=== PATIENT | male | born 1955 | race Caucasian/White ===

== ENCOUNTER 2020-11-25 07:58 | Outpatient (CLI) | payer OTHER, SELFPAY ==
[2020-11-25 08:18] LABS: Add Urine Microscopic? NO; Appearance Urine Clear (Clear); Bilirubin Urine Negative (Negative); Blood Urine Negative (Negative); Color Urine Yellow (Yellow); Glucose Urine UA Negative (Negative); Ketones Urine Negative (Negative); Leukocyte Esterase Ur Negative (Negative); Nitrate Urine Negative (Negative); Protein Urine Negative (Negative); Specific Grav Ur 1.025 (1.010-1.020); Urobilinogen Urine 0.2 mg/dL (0.2-1.0)
[2020-11-25 08:22] LABS: Hemoglobin A1C 6.9 % (<5.7)
[2020-11-25 08:33] LABS: Creatinine Urine 194.06 mg/dL (40-278); MALB Creatinine Ratio 6.6 mg/g (0-30); Microalbumin Urine Random < 13.0 mg/L
[2020-11-25 08:56] LABS: Alanine Aminotransferase 52 U/L (16-63); Albumin Level 3.8 g/dL (3.4-5.0); Alkaline Phosphatase 57 U/L (46-116); Anion Gap 9 mmol/L (8-16); Aspartate Amino Transferase 28 U/L (15-37); Bilirubin,Total 0.7 mg/dL (0.00-1.00); Blood Urea Nitrogen 16 mg/dL (7-18); Calcium 8.9 mg/dL (8.5-10.1); Carbon Dioxide 30 mmol/L (21-32); Chloride 102 mmol/L (98-108); Cholesterol 192 mg/dL (0-200); Creatine Kinase 155 U/L (39-308); Estimated Glomerular Filt Rate > 60; Glucose 145 mg/dL (70-99); HDL Direct 31 mg/dL (40-60); LDL Cholesterol Calculated 121 mg/dL (<130); Osmolality Calculated 296 mOsm/kg (285-295); Potassium 3.9 mmol/L (3.5-5.1); Prostate Specific Antigen 0.8 ng/mL (< OR = 4.0); Sodium 141 mmol/L (136-145); Triglycerides 201 mg/dL (0-150)
== END 2020-11-25 07:59 | disposition home or self-care (01) ==
LOC: CHSLAB 08:00
PROVIDERS: PCP Internal Medicine; Visit Provider Internal Medicine
DX: E11.65 Type 2 diabetes mellitus with hyperglycemia (principal); E78.2 Mixed hyperlipidemia; I10 Essential (primary) hypertension; Z12.5 Encounter for screening for malignant neoplasm of prostate
CPT/HCPCS: 36415; 80053; 80061; 81003; 82043; 82550; 83036; 84153; G0103

== ENCOUNTER 2021-04-28 11:06 | Outpatient (CLI) | payer OTHER, SELFPAY ==
[2021-04-28 12:48] LABS: Influenza A QL RT-PCR Negative (Negative); Influenza B QL RT-PCR Negative (Negative); SARS-CoV-2 RNA PCR Negative (Negative)
== END 2021-04-28 11:07 | disposition home or self-care (01) ==
LOC: CHSLAB 11:08
PROVIDERS: PCP Internal Medicine; Visit Provider Internal Medicine
DX: J06.9 Acute upper respiratory infection, unspecified (principal); Z20.822 Contact with and (suspected) exposure to COVID-19
CPT/HCPCS: 87502; C9803; U0003; U0005

== ENCOUNTER 2021-07-09 16:25 | Outpatient (CLI) | payer OTHER, SELFPAY ==
[2021-07-09 17:44] LABS: SARS-CoV-2 RNA PCR Negative (Negative)
== END 2021-07-09 16:26 | disposition home or self-care (01) ==
LOC: CHSLAB 16:27
PROVIDERS: PCP Internal Medicine; Visit Provider Internal Medicine
DX: J06.9 Acute upper respiratory infection, unspecified (principal); Z20.822 Contact with and (suspected) exposure to COVID-19
CPT/HCPCS: C9803; U0003; U0005

== ENCOUNTER 2021-10-29 08:22 | Outpatient (CLI) | payer OTHER, SELFPAY ==
--- NOTE | ~2021-10-29 | XR_ITS ---
EXAMINATION: XR knee RT 3V DATE: 10/29/2021 08:43 INDICATION: Right knee pain. TECHNIQUE: 4 views of right knee including standing views were obtained. COMPARISON: None. FINDINGS: There is varus angulation at the knee. No fracture. There is severe osteoarthritis of media l compartment and mild osteoarthritis of patellofemoral compartment. No knee joint effusion. IMPRESSION: 1. Severe right knee osteoarthritis. Reviewed, dictated and finalized at location A.
== END 2021-10-29 08:23 | disposition home or self-care (01) ==
LOC: CHSIMG 08:23
PROVIDERS: PCP Internal Medicine; Visit Provider Internal Medicine
DX: M17.11 Unilateral primary osteoarthritis, right knee (principal); M25.561 Pain in right knee
CPT/HCPCS: 73562

== ENCOUNTER 2021-11-08 16:57 | Outpatient (RCR) | payer OTHER, SELFPAY ==
--- NOTE | 2021-11-15 12:48 | PTOPEVAL ---
Thank you for referring Srinivas Harkins to [facility].? The patient is scheduled to be seen for therapy? ____x/week for ___ weeks. Please review, sign, date and return this plan of care PAMELA. I agree with and certify that the following plan of care is medically necessary. Referring Physician Date Admitting Provider: Attending Provider: Adamaris Tran MD Referring Provider: *PT Outpatient Evaluation Start: 11/08/21 17:03 Freq: Status: Active Protocol: Document 11/08/21 17:04 YOVANY (Rec: 11/08/21 17:48 YOVANY [email or web address]) Therapy Assessment Status Assessment Status Assessment Status Evaluation Evaluation Information Problem Diagnosis bilateral knee pain Onset 11/05/21 Additional Evaluation Detail LEFS = 23% functionally declined Subjective Information patient reports he has had Query Text:As Reported By Patient/ pain in the bilateral knees Family for years (surgery on the R in 1998 and on the L in 2002). he reports however, for the past 6 months things have been progerssively worse. he reports he has had xrays about 2 weeks ago. he reports he has increased pain with walking, worse throughout the day if he is walking longer. he reports he also has increased pain with walking up and down steps. he reports the outside of his knee will feel numb after a full day walking. he reports he has been wearing copper fit compression sleeves for about 2 weeks. 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 Prior Level of Function Comments Additional Prior Level of Function he reports for the last 6 Comments months his activity tolerance and distance/time walking has significantly decreased. Pain Assessment Timing of Pain Assessment Timing of Pain Assessment Assessment Pain Scale Pain Scale Used Numeric (1 - 10) Self Report Pain Assessment Left Knee(s) Reported Pain Level 1 Greatest Pain Intensity 2 Right Knee(s) Reported Pain Level 3 Greatest Pain Intensity 3 Pain Score Pain Score 3,1: Self Report Additiona
== END 2021-12-13 08:49 | disposition home or self-care (01) ==
LOC: CHSPT 16:57
PROVIDERS: PCP Internal Medicine; Visit Provider Internal Medicine
DX: M25.562 Pain in left knee (principal); M25.561 Pain in right knee
CPT/HCPCS: 97014; 97110; 97161; G0283

== ENCOUNTER 2021-11-23 08:24 | Outpatient (CLI) | payer OTHER, SELFPAY ==
--- NOTE | ~2021-11-23 | XR_ITS ---
EXAMINATION: XR chest 2V DATE: 11/23/2021 08:55 INDICATION: Hypertension TECHNIQUE: PA and lateral views of the chest are obtained. COMPARISON: 01/21/2015 FINDINGS: The lungs are free of acute opacities. There is no pleural effusion or pneumothorax. The ca rdiomediastinal silhouette is normal. There is mild thoracic spondylosis. Calcified pulmonary nodules and calcified left hilar and mediastinal lymph nodes are consistent with old granulomatous disease. IMPRESSION: 1. No acute cardiopulmonary abnormality. Reviewed, dictated and finalized at location A.
[2021-11-23 08:43] LABS: Basophils Absolute Auto 0.05 K/mm3 (0.00-0.10); Basophils Percent Auto 0.5 % (0.0-1.0); Eosinophils Absolute Auto 0.11 K/mm3 (0.02-0.50); Eosinophils Percent Auto 1.2 % (1.0-6.0); Hematocrit 39.4 % (40.0-54.0); Hemoglobin 13.3 g/dL (14.0-18.0); Immature Granulocyte Absolute 0.04 K/mm3 (0.00-0.00); Immature Granulocyte Percent A 0.4 % (0.0-0.0); Lymphocytes Absolute Auto 1.66 K/mm3 (1.10-4.50); Lymphocytes Percent Auto 17.8 % (18.0-42.0); Mean Corpuscular HGB Conc 33.8 g/dL (32.0-36.0); Mean Corpuscular Hemoglobin 31.9 pg (27.0-31.0); Mean Corpuscular Volume 94.5 fL (78.0-102.0); Mean Platelet Volume 10.7 fl (8.7-11.0); Monocytes Absolute Auto 0.79 K/mm3 (0.10-0.90); Monocytes Percent Auto 8.5 % (2.0-11.0); Neutrophils Absolute Auto 6.7 K/mm3 (1.7-7.2); Neutrophils Percent Auto 71.6 % (50.0-70.0); Platelet Count Result 251 K/mm3 (150-420); Red Blood Count 4.17 M/mm3 (4.70-6.10); Red Cell Distribution Width 12.1 % (11.6-14.4); White Blood Count 9.3 K/mm3 (4.8-10.8)
[2021-11-23 08:56] LABS: Add Urine Microscopic? NO; Appearance Urine Clear (Clear); Bilirubin Urine Negative (Negative); Blood Urine Negative (Negative); Color Urine Light Yellow (Yellow); Glucose Urine UA Negative (Negative); Ketones Urine Negative (Negative); Leukocyte Esterase Ur Negative (Negative); Nitrate Urine Negative (Negative); Protein Urine Negative (Negative); Specific Grav Ur 1.015 (1.010-1.020); Urobilinogen Urine 0.2 mg/dL (0.2-1.0)
--- NOTE | 2021-11-23 09:00 | ECG_ITS ---
Measurements Intervals [place] Rate: 58 P: 36 VA: 206 QRS: 65 QRSD: 109 T: 45 QT: 406 QTc: 400 Interpretive Statements SINUS BRADYCARDIA WITH OCCASIONAL VENTRICULAR PREMATURE COMPLEXES NO PREVIOUS ECG AVAILABLE FOR COMPARISON Electronically Signed On 11-23-2021 10:06:04 CDT by Royal Plummer M.D.
[2021-11-23 09:01] LABS: Creatinine Urine 58.26 mg/dL (40-278); MALB Creatinine Ratio 38.4 mg/g (0-30); Microalbumin Urine Random 22.4 mg/L
[2021-11-23 09:03] LABS: Hemoglobin A1C 6.8 % (<5.7)
[2021-11-23 09:07] LABS: Alanine Aminotransferase 39 U/L (16-63); Albumin Level 3.7 g/dL (3.4-5.0); Alkaline Phosphatase 52 U/L (46-116); Anion Gap 4 mmol/L (8-16); Aspartate Amino Transferase 18 U/L (15-37); Bilirubin,Total 0.6 mg/dL (0.00-1.00); Blood Urea Nitrogen 24 mg/dL (7-18); Carbon Dioxide 30 mmol/L (21-32); Chloride 102 mmol/L (98-108); Cholesterol 202 mg/dL (0-200); Creatine Kinase 56 U/L (39-308); Estimated Glomerular Filt Rate > 60; Glucose 79 mg/dL (70-99); HDL Direct 40 mg/dL (40-60); LDL Cholesterol Calculated 128 mg/dL (<130); Osmolality Calculated 285 mOsm/kg (285-295); Potassium 4.3 mmol/L (3.5-5.1); Sodium 136 mmol/L (136-145); Total Protein 7.8 g/dL (6.4-8.2); Triglycerides 170 mg/dL (0-150)
== END 2021-11-23 08:25 | disposition home or self-care (01) ==
PROVIDERS: PCP Internal Medicine; Visit Provider Nurse Practitioner Family
DX: R42 Dizziness and giddiness (principal); I10 Essential (primary) hypertension; E78.2 Mixed hyperlipidemia; E11.9 Type 2 diabetes mellitus without complications; M25.561 Pain in right knee
CPT/HCPCS: 36415; 71046; 80053; 80061; 81003; 82043; 82550; 83036; 85025; 93005

== ENCOUNTER 2022-02-15 11:52 | Outpatient (CLI) | payer OTHER, SELFPAY ==
[2022-02-15 13:05] LABS: Basophils Absolute Auto 0.1 K/mm3 (0.0-0.1); Basophils Percent Auto 0.5 % (0.2-1.2); Eosinophils Absolute Auto 0.2 K/mm3 (0-0.3); Eosinophils Percent Auto 2.1 % (0-4.4); Hematocrit 37.8 % (42.0-52.0); Hemoglobin 12.8 g/dL (14.0-18.0); Immature Granulocyte Absolute 0.05 K/mm3 (0.00-0.031); Immature Granulocyte Percent A 0.5 % (0-0.5); Lymphocytes Absolute Auto 2.15 K/mm3 (0.9-3.2); Lymphocytes Percent Auto 22.8 % (18.3-44.2); Mean Corpuscular HGB Conc 33.9 g/dl (32-36); Mean Corpuscular Hemoglobin 32.2 pg (26-34); Mean Corpuscular Volume 95.2 fl (80-100); Mean Platelet Volume 11.4 fl (7.4-10.4); Monocytes Percent Auto 10.2 % (2.6-8.5); Neutrophils Percent Auto 63.9 % (45.5-73.1); Platelet Count Result 257 k/mm3 (150-375); Red Blood Count 3.97 M/mm3 (4.6-6.20); Red Cell Distribution Width 12.2 % (11.5-14.5); White Blood Count 9.4 K/mm3 (4.5-10.0)
[2022-02-15 13:14] LABS: Albumin Level 4.7 g/dL (3.5-5.1); Anion Gap 10 mmol/L (8-16); Blood Urea Nitrogen 30 mg/dL (9-20); Calcium 10.2 mg/dL (8.4-10.2); Carbon Dioxide 26 mmol/L (22-30); Chloride 102 mmol/L (98-107); Estimated Glomerular Filt Rate 56; Glucose 111 mg/dL (65-110); Potassium 5.5 mmol/L (3.4-5.0); Sodium 138 mmol/L (137-145)
[2022-02-15 13:24] LABS: Urine Cotinine NEGATIVE
[2022-02-15 13:32] LABS: Hemoglobin A1C 6.7 % (<5.7)
== END 2022-02-15 11:53 | disposition home or self-care (01) ==
LOC: ANHSURGERY 12:03
PROVIDERS: PCP Internal Medicine; Visit Provider Orthopaedic Surgery
DX: M17.11 Unilateral primary osteoarthritis, right knee (principal); Z01.818 Encounter for other preprocedural examination
CPT/HCPCS: 80048; 80307; 82040; 83036; 85025; 87070

== ENCOUNTER 2022-03-02 00:57 | Day surgery (SDC) | payer OTHER, SELFPAY ==
--- NOTE | 2022-02-15 11:56 | PC.NURSE ---
PRE-OP INSTRUCTIONS, PLEASE READ CAREFULLY Report to the Outpatient Waiting Room, entrance under the green pavilion located off [facility], at time _1000_ on date _03/02/22_. OR Time: _1200_. PACK A SMALL OVERNIGHT BAG AND LEAVE IN THE CAR ALONG WITH YOUR WALKER. Time changes happen often and if your time is changed the preop area will call you the afternoon before. - You and your visitor will be asked to self-screen and do not enter if you have any COVID symptoms. - A mask is required within the hospital. - Only one visitor and NO children visitors are allowed at this time. - The patient visitor is requested to leave or wait in car when not with patient due to restrictions. - VISITING HOURS 10AM-8PM PARK IN FRONT PARKING LOT AND USE HOSPITAL ENTRANCE 1 Patients may have clear liquids (water, carbonated beverages, clear teas, apple juice) until 3 hours prior to surgery (0900 AM) with a maximum of 20 ounces. - No food from midnight until time of surgery Take the following medications with a SIP of water the morning of surgery: _AMLODIPINE, CARVEDILOL_ Medications to discontinue per physician ___N/A___, Date to take last dose Please no deodorant, or body powder the day of surgery. No jewelry (including any body piercings) or valuables the day of surgery, leave them at home. Please take a shower or bath the night before, or the morning of, surgery with an antibacterial soap. Wear comfortable, loose fitting clothing. - Jewelry must be removed prior to entering the operating room. Rings and piercings that are not removed may be cut off. - The hospital will not accept responsibility for valuables. - Please leave all valuables, including medications, at home the day of surgery. If you are going home after surgery, a licensed [employer] driver must drive you home. - NO public transportation without another adult. - We recommend that an adult stay with you for 24 hours following discharge. - We also recommend that you do not drive, make important decision, drink alcoholic beverages, or take any drugs that were not prescribed by your health care provider for at least 24 hours after your discharge time. Follow any additional instructions given to you from your surgeon. If you or anyone in your household have experienced Covid symptoms in the past week, please notify your surgeon or the nurse liaison at the phone number below for possible testing. Instructions given to ____PT and asked if any additional questions and then verbalized understanding. Patient advised to call surgeon office or pre surgery nurse liaison [phone] if any additional questions.
[2022-02-15 12:23] VITALS: BP 120/70; PULSE 64; RESP 20; TEMP 36.4; O2SAT 98; BMI 36.0
--- NOTE | 2022-03-01 15:43 | WPDANESEPPF ---
Anes - Initial Pre Proc Eval Procedure: Operation Date: 03/02/22 12:00 Proposed Procedures p Right Total Knee Arthroplasty - Jaziel Hernandez MD Date/Time: 03/01/22 15:43 Surgeon: Jaziel Hernandez MD Pre Op Diagnosis: OA right knee Patient Data Age: 66 Gender: M Height: 1.85 m Weight: 123.9 kg Last Vital Signs Temp 36.4 C 02/15/22 12:23 Pulse 64 02/15/22 12:23 Resp 20 02/15/22 12:23 BP 120/70 02/15/22 12:23 Pulse Ox 98 02/15/22 12:23 O2 Del Method Room Air 02/15/22 12:23 Allergies Allergy/AdvReac Type Severity Reaction Status Date / Time No Known Allergies Allergy Unknown Unverified 03/02/22 10:13 Home Medications Medication Instructions Recorded Confirmed Type amlodipine 10 mg tablet 10 mg QA 02/15/22 03/02/22 History carvedilol 25 mg tablet 25 mg BID 02/15/22 03/02/22 History glimepiride 4 mg tablet 8 mg [facility] 02/15/22 03/02/22 History lisinopril 20 1 tablet [facility] 02/15/22 03/02/22 History mg-hydrochlorothiazide 12.5 mg tablet metformin 500 mg tablet 500 mg PO [facility] 02/15/22 03/02/22 History pioglitazone 30 mg tablet 30 mg [facility] 02/15/22 03/02/22 History pravastatin 40 mg tablet 20 mg HS 02/15/22 03/02/22 History spironolactone 50 mg tablet 50 mg [facility] 02/15/22 03/02/22 History ECG: Date of Service: 11/23/21 Procedure(s): CA 12 lead EKG Accession Number(s): [id number] cc: ~ ? Measurements Intervals? [place]? Rate: ? 58 ? P:? 36 MT: ? 206? QRS:? 65 QRSD: ? 109? T:? 45 QT: ? 406? QTc:? 400? Interpretive Statements SINUS BRADYCARDIA WITH OCCASIONAL VENTRICULAR PREMATURE COMPLEXES NO PREVIOUS ECG AVAILABLE FOR COMPARISON Electronically Signed On 11-23-2021 10:06:04 CDT by Royal Plummer M.D. Patient hx anesthesia problems: none Family hx anesthesia problems: none Results Review: All pre-operative results and documents have been reviewed as part of the pre-operative evaluation. [facility] Past Medical History Medical History Diabetes HTN (hypertension) Hyperlipidemia Obesity IRWIN on CPAP Osteoarthritis Social History Social History Smoking status: Never smoker Second hand tobacco smoke exposure: No Additional smoking assessment comments: PT DENIES ALL FORMS OF TOBACCO USE Alcohol intake: never Substance use: never Substance use type: does not use Living arrangements: with family Spiritual care concerns: No Anes - Eval Final PreProcedure Day of Procedure 03/01/22 15:43 Patient weight: morbidly obese Heart: regular rate and rhythm Lungs: clear to auscultation and normal air movement Airway: Mallampati scale class II Neurological: alert and oriented Last oral intake: >/= 8 hours ASA classification: III Emergent: no Anesthetic plan: proceed Anesthesia type and monitoring: general LMA Results Review: All pre-operative results and documents have been reviewed as part of the pre-operative evaluation. Informed Consent: The patient's anesthetic plan and its attendant risks and benefits were discussed with the patient/family/POA. Questions were solicited and answers provided to the satisfaction of the patient/family/POA.
[2022-03-02] VITALS (13 sets, daily range): BP systolic 118–179; BP diastolic 54–81; PULSE 57–128; RESP 12–21; TEMP 36.1–37.1; O2SAT 94–100
--- NOTE | ~2022-03-02 | XR_ITS ---
EXAMINATION: XR knee RT 2V DATE: 03/02/2022 17:32 INDICATION: Postoperative evaluation following right total knee arthroplasty. TECHNIQUE: Anteroposterior and lateral views of the right knee were obtained. COMPARISON: 10/29/2021 FINDINGS: Right total knee arthroplasty without patellar resurfacing appears well seated and in near anatomic a lignment. No fractures identified. Expected postoperative subcutaneous and intra-articular gas. IMPRESSION: 1. Right total knee arthroplasty, negative for postoperative purposes. Reviewed, dictated and finalized at location A.
--- NOTE | 2022-03-02 08:10 | PM.IMHP ---
H&P: HPI History of Present Illness Date/Time: 03/02/22 08:10 Chief Complaint: Right knee DJD Narrative: 66-year-old male patient of Dr. Tran who presents today for a right total knee arthroplasty. Patient is having symptoms in the right knee for years. 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 He is on his feet quite a bit. He is at this point on light duty to minimize time on his feet due to the fact of the pain he is having in the knee. He has been taking Advil for it mg 2 or 3 times a day consistently for several years. He had a cortisone injection November 03 of this year which helped for about a month. He has severe medial compartment osteoarthritis. He feels at this point is very proceed with total knee arthroplasty rather continue any nonsurgical treatment. Review of Systems Review of Systems: All systems reviewed & are unremarkable except as noted in HPI and below PMFSH Past Medical History Medical History Diabetes HTN (hypertension) Hyperlipidemia Obesity IRWIN on CPAP Osteoarthritis Social History Social History Smoking status: Never smoker Second hand tobacco smoke exposure: No Additional smoking assessment comments: PT DENIES ALL FORMS OF TOBACCO USE Alcohol intake: never Substance use: never Substance use type: does not use Living arrangements: with family Spiritual care concerns: No Meds Home Medications and Allergies Home Medications Medication Instructions Recorded Confirmed Type amlodipine 10 mg tablet 10 mg QA 02/15/22 03/02/22 History carvedilol 25 mg tablet 25 mg BID 02/15/22 03/02/22 History glimepiride 4 mg tablet 8 mg QA 02/15/22 03/02/22 History lisinopril 20 1 tablet [facility] 02/15/22 03/02/22 History mg-hydrochlorothiazide 12.5 mg tablet metformin 500 mg tablet 500 mg PO [facility] 02/15/22 03/02/22 History pioglitazone 30 mg tablet 30 mg QA 02/15/22 03/02/22 History pravastatin 40 mg tablet 20 mg HS 02/15/22 03/02/22 History spironolactone 50 mg tablet 50 mg QA 02/15/22 03/02/22 History Allergies Allergy/AdvReac Type Severity Reaction Status Date / Time No Known Allergies Allergy Unknown Unverified 03/02/22 10:13 Exam Narrative: 66-year-old male alert pleasant. He is 6 ft 1 270 lb, his BMI is 35.6. Right knee range of motion is from 0-140 degrees. He has mild effusion. Normal stability in the knee. hip range of motion is full without discomfort. Negative Stinchfield maneuver. Normal quad strength. 2+ dorsalis pedis and posterior artery pulse. No edema in lower extremities. Resp: Auscultation: clear to auscultation bilaterally Cardio: Rate: regular rate Rhythm: regular rhythm Assessment and Plan Assessment and plan (1) Osteoarthritis: Code(s): M19.90 - Unspecified osteoarthritis, unspecified site Status: Acute Plan 66-year-old male with severe medial compartment osteoarthritis in the right knee with continued symptoms. Again patient feels he is ready proceed with total knee arthroplasty rather continue nonsurgical treatment. Surgical procedure as well as the risks and complications were discussed in detail questions were answered and we will proceed. Patient will see his primary care doctor for pre-surgical clearance. He has seen Dr. [facility] and has been cleared without additional testing. his nasal swab was negative. On Chem panel is potassium was high at 5.5, his creatinine is 1.30. Hemoglobin A1c is 6.7. Hemoglobin is 12.8 platelets 257. We will plan to use Eliquis for DVT prophylaxis postoperatively. Patient will avoid is Advil any other aspirin ibuprofen products 1 week prior surgery
[2022-03-02] MEDS: ACETAMINOPHEN 500 MG TABLET 1000 MG PO ×2 (10:17→19:50)
[2022-03-02 10:56] LABS: Glucose Point of Care 119 mg/dl (65-105)
[2022-03-02] MEDS: LACTATED RINGERS 1,000 ML 30 ML IV CONT ×2 (10:59→17:07)
[2022-03-02] MEDS: TRANEXAMIC ACID 1,000MG/ISO100 1,000 MG/100 ML BAG 200 MG IVPB (11:30)
--- NOTE | 2022-03-02 11:47 | WPDHPUPDATE1 ---
History and Physical Update Update Date/Time: 03/02/22 11:47 History and Physical has been reviewed, including an updated exam of the patient. There are NO changes in the patient's condition. Risks, benefits, and alternatives have been discussed and questions answered. Patient agrees to proceed with procedure.
[2022-03-02] MEDS: ceFAZolin 3 GM/D5W 100 ML 100 ML IVPB (12:08)
[2022-03-02] MEDS: ceFAZolin SODIUM 1 GM VIAL 3 GM (12:54)
[2022-03-02] MEDS: GENTAMICIN BONE CEMENT REFOBACIN 1 EACH TOPICAL (15:31)
[2022-03-02] MEDS: TRANEXAMIC ACID 1,000 MG/10 ML AMPUL 1000 MG IV PUSH (15:52)
[2022-03-02] MEDS: ceFAZolin SODIUM 1 GM VIAL 2 GM IV PUSH (15:54)
--- NOTE | 2022-03-02 17:10 | W.PM.PROC2 ---
Procedure Note - Detailed Date of Procedure 03/02/22 Pre-op Diagnosis OA right knee, obesity BMI of 36 Post-op Diagnosis Same Procedure Performed Right total knee arthroplasty Surgeon Jaziel Hernandez MD Global Risk Management Director Francisco J Description of Procedure Patient was brought to the operating room and general anesthesia was administered. He received 3 g Ancef weight based vancomycin 1 g tranexamic acid preoperatively in the right leg prepped draped usual fashion. Limb was exsanguinated tourniquet elevated to 250 mmHg. An 8 in longitudinal midline incision was using the standard parapatellar arthrotomy was utilized. Infrapatellar and suprapatellar fat pads were excised and a quadriceps synovectomy carried out. The articular cartilage on the patella was normal and I felt the cartilage was appropriate for non resurfacing. A guide lora was inserted on the femoral canal after aspiration of canal contents in using the 5 degree valgus cutting bushing 10 mm of bone removed the distal femur. This removed 10 medially but only about 7 laterally. Next the tibial plateau was cut. We made a skim cut off the medial tibial plateau just underneath the posteromedial articular cartilage. He had a significant varus slope to his proximal tibia and this removed about 13 mm from the lateral side. We took care to avoid release of the lateral capsule low from the tibial plateau which was successfully left intact. Meniscal remnants were excised the PCL was released. Flexion gap measured 8 mm medially and 14 mm laterally at 90?. The femoral sizing guide was applied the femur with 5? of external rotation which appeared a little bit external to [place] line. The size 75 looked like it would notch a little bit so we cut the femur to a size 80 which was too wide. Flexion gaps were assessed with a CR insert at 90? and even with 5? of external rotation the lateral side was still significantly looser than the medial side. Noting that we did not have excessive external rotation on the femoral cuts, we downsized the femur to a size 75 flexing the 75 block 1 or degrees to avoid notching. Seventy-five fit nicely line to line to lateral and flush with the anterior cortex. The tibia was sized to a 79 which was placed at the proper degree of rotation referenced off medial 1/3 of tibial tubercle and the 2nd metatarsal ray. This was punched and we then removed some of the posterior and posteromedial tibial plateau osteophyte. We trialed with the size 11 insert which came out to full extension with no plate medially and 2-3 mm of lateral quite and extension but this was too loose in flexion. 13 mm insert gave appropriate stability a flexion respect anterior drawer. Additional 2 mm of bone removed the distal femur and excess posterior condylar bone was removed from the femur at this time. The knee came out just to full extension again with the 13 insert now no medial play and 2-3 mm of lateral. At 90?, with the 13 insert I felt that at 90? it was too tight on the medial side was plate laterally. Therefore, was decided to shave 1 mm of bone off the medial tibial plateau which was done using the previously position cutting block shifting it into a degree of varus. This was performed and the heel pre punched and we confirmed the the tibial tray sat flush without rocking after the tibial prep. We trialed again and at 90? with the 13 insert there was a little bit of play to anterior drawer and the medial side and it seemed appropriate however there was 2 still I felt too much play laterally at 90?. I felt that was probable that lateral ligamentous constraints for probably little bit stretched out because of his varus deformity flexion. I trialed with the 14 insert which was too tight medially in flexion and extension but there was now 2 mm of gapping on the lateral side at 90? which I felt would be acceptable. The excessive tightness medially at 90? would not be acceptable and therefore I elected to cu
[2022-03-02] MEDS: fentaNYL CITRATE INJ (*CRX) 100 MCG/2 ML VIAL 25 MCG IV PUSH ×7 (17:35→18:22)
[2022-03-02 17:41] LABS: Glucose Point of Care 260 mg/dl (65-105)
[2022-03-02 17:41] LABS: Glucose Point of Care 224 mg/dl (65-105)
[2022-03-02] MEDS: SODIUM CHLORIDE 0.9% IV 1,000 ML 125 ML IV CONT (19:45)
[2022-03-02] MEDS: carvediloL 25 MG TABLET PO (19:49)
[2022-03-02] MEDS: PRAVASTATIN SODIUM 20 MG TABLET PO (19:50)
[2022-03-02 20:57] LABS: Glucose Point of Care 227 mg/dl (65-105)
[2022-03-02] MEDS: oxyCODONE HCL (*CRX) 5 MG TAB IR PO (21:09)
--- NOTE | 2022-03-02 23:12 | PM.IMCN ---
Assessment and Plan Assessment and plan (1) Hx of total knee arthroplasty: Code(s): Z96.659 - Presence of unspecified artificial knee joint Status: Acute Assessment and Plan: - postop care per orthopedic physician - anticoagulation per orthopedic physician - PT OT - antibiotics per orthopedic physician - pain management per orthopedic physician (2) Diabetes: Code(s): E11.9 - Type 2 diabetes mellitus without complications Status: Acute Assessment and Plan: - Accu-Cheks AC and HS with sliding scale insulin - continue with Amaryl - patient's metformin was continued - continue with active (3) HTN (hypertension): Code(s): I10 - Essential (primary) hypertension Status: Acute Assessment and Plan: - continue with Norvasc - continue with Coreg - Aldactone was continued (4) Hyperlipidemia: Code(s): E78.5 - Hyperlipidemia, unspecified Status: Acute Assessment and Plan: - continue with pravastatin (5) IRWIN on CPAP: Code(s): G47.33 - Obstructive sleep apnea (adult) (pediatric); Z99.89 - Dependence on other enabling machines and devices Status: Acute Assessment and Plan: - the patient brought his own CPAP and has been checked out by maintenance. He may use his own CPAP from home. HPI Data of Consult Consult date: 03/02/22 Requesting Physician: Jaziel Hernandez MD Primary Care Provider: Adamaris Tran MD Consult Narrative Narrative: Srinivas Harkins is a 66 year old male Who has severe osteoarthritis. The patient came in today for right total knee arthroplasty. The patient has had symptoms to his right knee for many years. 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 He has been on his feet quite a bit. The patient recently retired because he could no longer perform his job. The patient has been taking Advil 2 to 3 times a day consistently for several years. He also had a cortisone injection November 03 of this year which helped for about a month. The patient has severe medial compartment osteoarthritis. The patient proceeded with the right total knee arthroplasty per Dr. Hernandez today. See operative note. The patient has gotten to the chair for 30 minute. he has a history of hypertension and diabetes. The hospitalist group has been asked to consult for medical management. Date of service is 03/02/2022. Review of Systems Review of Systems: see hpi All systems reviewed & are unremarkable except as noted in HPI and below Constitutional: Constitutional: Reports as per HPI and Reports no additional constitutional complaints Eyes: Eyes: Reports as per HPI and Reports no additional eye complaints ENT: Reports system reviewed and no additional complaints, except as documented and Reports Normal hearing present Cardiovascular: Cardiovascular: Reports no additional cardiovascular complaints Respiratory: Respiratory: Reports no additional respiratory complaints and Reports no additional respiratory complaints Gastrointestinal: Gastrointestinal: Reports as per HPI and Reports no additional gastrointestinal complaints Musculoskeletal: Musculoskeletal: Reports no additional musculoskeletal complaints Integumentary/Breasts: Skin/Breast: Reports system reviewed and no additional complaints, except as docu and Reports as per HPI Neurologic: Reports system reviewed and no additional complaints, except as documented, Reports as per HPI and Reports Normal hearing present Psychiatric: Psychiatric: Reports no additional psychiatric complaints and Reports as per HPI Endocrine: Endocrine: Reports no additional endocrine complaints Hematologic/Lymphatic: Hematologic/Lymphatic: Reports no additional hematologic/lymphatic complaints Allergic/Immunologic: Allergic/Immunologic: Reports no additional allergic/immunologic complaints [facility] Past Medical History Medical History (Reviewed 02/04
[2022-03-03 01:16] VITALS: BP 127/58; PULSE 86; RESP 18; TEMP 37.1; O2SAT 96
[2022-03-03] MEDS: ACETAMINOPHEN 500 MG TABLET 1000 MG PO ×2 (01:33→09:01)
[2022-03-03] MEDS: oxyCODONE HCL (*CRX) 5 MG TAB IR PO ×4 (01:34→12:01)
[2022-03-03 05:02] LABS: Basophils Percent Auto 0.2 % (0.2-1.2); Hematocrit 30.5 % (42.0-52.0); Hemoglobin 10.2 g/dL (14.0-18.0); Immature Granulocyte Percent A 0.5 % (0-0.5); Lymphocytes Absolute Auto 1.12 K/mm3 (0.9-3.2); Lymphocytes Percent Auto 6.1 % (18.3-44.2); Mean Corpuscular HGB Conc 33.4 g/dl (32-36); Mean Corpuscular Hemoglobin 32.2 pg (26-34); Mean Corpuscular Volume 96.2 fl (80-100); Mean Platelet Volume 11.2 fl (7.4-10.4); Monocytes Absolute Auto 1.1 K/mm3 (0.1-0.6); Neutrophils Absolute Auto 15.9 K/mm3 (1.3-6.7); Neutrophils Percent Auto 87.2 % (45.5-73.1); Platelet Count Result 205 k/mm3 (150-375); Red Blood Count 3.17 M/mm3 (4.6-6.20); White Blood Count 18.3 K/mm3 (4.5-10.0)
[2022-03-03 05:17] LABS: Anion Gap 8 mmol/L (8-16); Blood Urea Nitrogen 29 mg/dL (9-20); Carbon Dioxide 22 mmol/L (22-30); Chloride 102 mmol/L (98-107); Estimated CRCL calculation 82 ml/min; Estimated Glomerular Filt Rate > 60; Glucose 258 mg/dL (65-110); Potassium 4.7 mmol/L (3.4-5.0); Sodium 132 mmol/L (137-145)
[2022-03-03 05:27] LABS: Hemoglobin A1C 6.4 % (<5.7)
[2022-03-03 06:21] VITALS: BP 138/56; PULSE 71; RESP 20; TEMP 36.9; O2SAT 98
--- NOTE | 2022-03-03 06:52 | PM.PNORT ---
Subjective Subjective Date/Time Seen: 03/03/22 06:52 postop day 1 patient is alert. Pain is well controlled. Dressing is intact and dry. Neurovascular is intact. He was up yesterday in the chair for a while. Overall he is feeling good and doing well. We will plan to have patient work with physical therapy twice today. Once his IV antibiotics are done and if he continues do well plan of discharge him home this afternoon. Morning labs not been completed yet Objective Data Vital Signs Vital Signs: Vital Signs - 24 hr 03/02/22 11:04 03/02/22 17:10 03/02/22 17:25 Temperature 36.3 C L 37.1 C Pulse Rate 57 L 84 84 Respiratory Rate 16 12 16 Blood Pressure 133/67 129/54 L 160/78 H Pulse Oximetry 100 95 99 Oxygen Delivery Room Air Simple Face Mask Simple Face Mask Oxygen Flow Rate 8 8 03/02/22 17:40 03/02/22 17:55 03/02/22 18:10 Temperature Pulse Rate 82 84 87 Respiratory Rate 12 12 15 Blood Pressure 161/74 H 162/76 H 149/57 H Pulse Oximetry 100 96 94 Oxygen Delivery Simple Face Mask Room Air Room Air Oxygen Flow Rate 8 03/02/22 18:25 03/02/22 19:49 03/02/22 19:00 Temperature 36.3 C L Pulse Rate 89 120 H 109 H Respiratory Rate 16 16 Blood Pressure 145/67 H 149/81 H Pulse Oximetry 94 99 Oxygen Delivery Room Air Oxygen Flow Rate 03/02/22 19:15 03/02/22 19:40 03/02/22 20:11 Temperature 36.1 C L 36.9 C Pulse Rate 125 H 125 H Respiratory Rate 16 18 Blood Pressure 179/78 H 153/78 H Pulse Oximetry 97 99 Oxygen Delivery Room Air Oxygen Flow Rate 03/02/22 21:20 03/02/22 23:01 03/03/22 01:16 Temperature 36.5 C 37.1 C Pulse Rate 128 H 122 H 86 Respiratory Rate 21 H 18 Blood Pressure 118/81 127/58 L Pulse Oximetry 100 98 96 Oxygen Delivery CPAP Oxygen Flow Rate 03/03/22 06:21 Temperature 36.9 C Pulse Rate 71 Respiratory Rate 20 Blood Pressure 138/56 L Pulse Oximetry 98 Oxygen Delivery Oxygen Flow Rate Intake/Output Intake/Output: Intake & Output 09/2603/01/22 03/02/22 03/03/22 23:59 23:59 23:59 23:59 Intake Total 2200 1350 Output Total 500 Balance 2200 850 Meds/Results Medications: Active Medications Generic Name Dose Route Start Last Admin Trade Name Freq PRN Reason Stop Dose Admin Acetaminophen 1,000 mg 03/02/22 20:00 03/03/22 01:33 Acetaminophen 500 Mg Tablet PO 1,000 mg Q6H MARIA T Administration Amlodipine Besylate 10 mg 03/03/22 09:00 Amlodipine Besylate 5 Mg Tablet PO QAM MARIA T Apixaban 2.5 mg 03/03/22 09:00 Apixaban 2.5 Mg Tablet PO Q12HR MARIA T Carvedilol 25 mg 03/02/22 18:39 03/02/22 19:49 Carvedilol 25 Mg Tablet PO 25 mg BID MARIA T Administration Celecoxib 200 mg 03/03/22 08:00 Celecoxib 200 Mg Capsule PO DAILY@0800 MARIA T Cephalexin HCl 500 mg 03/03/22 18:00 Cephalexin 500 Mg Capsule PO Q6HR MARIA T Dextrose 12.5 gm 03/02/22 23:20 Dextrose 50% 25 Gm/50 Ml Syringe IV PUSH PRN PRN Hypoglycemia Protocol Glimepiride 8 mg 03/03/22 09:00 Glimepiride 2 Mg Tablet PO QAM MARIA T Glucagon 1 mg 03/02/22 23:20 Glucagon For Inj 1 Mg Vial IM PRN PRN Hypoglycemia Protocol Glucose 15 gm 03/02/22 23:20 Glucose Oral Gel 15 Gm Of Glucse In 37.5 Gm Tube PO PRN PRN Hypoglycemia Protocol Cefazolin Sodium 2 gm in 100 mls @ 200 mls/hr 03/02/22 20:00 03/03/22 05:00 Ancef 2 Gm/D5w 100 Ml IVPB 03/03/22 12:29 Infused Q8H MARIA T Infusion Vancomycin HCl 1,000 mg in 250 mls @ 250 mls/hr 03/02/22 23:00 03/03/22 00:00 Vancomycin 1,000 Mg/D5w 250 Ml IVPB 03/03/22 11:59 Infused Q12H MARIA T Infusion Dextrose 1,000 mls @ 100 mls/hr 03/02/22 23:20 Dextrose 5% 1,000 Ml IVPB PRN PRN Hypoglycemia Protocol Insulin Aspart 2 - 5 units 03/03/22 08:00 Insulin Aspart (*Bkc) 100 Units/Ml SUB-Q TIDWM MARIA T Protocol Metformin HCl 500 mg 03/03/22 09:00 Metformin Hcl 500 Mg
--- NOTE | 2022-03-03 06:57 | PM.DS ---
DS: Admitting Diagnosis Discharge Date 03/03 Admitting Diagnosis Left knee DJD DS: Discharge Diagnosis Discharge Diagnosis Plan [age]-year-old male underwent right total knee arthroplasty 0 03/02. Underwent the procedure without complications. Postoperatively he has been afebrile vital signs stable. Neurovascular is intact. He is on Eliquis for DVT prophylaxis. He is on scheduled Tylenol as well as the oxycodone 5 mg for pain control. He is on Celebrex 200 mg once a day. He is weight-bearing as tolerated. On postop day 1 patient was alert. Pain is well controlled. Dressing is dry and intact with minimal swelling in the knee. He was up sitting in the chair the day of surgery. Physical therapy will see the patient on postop day 1 to work on ambulation as well as range of motion. We will plan on discharging him home on 03/02. He also go home on a 12 day course of Keflex due to his history of diabetes. He is also on the MiraLax and Senokot for constipation. Patient was advised to keep leg elevated to help prevent swelling but do his exercises on an hourly basis. He has outpatient therapy starting on Monday. He was advised any questions or concerns he should call the office otherwise we will see him at his appointment dates. At the time of dictation morning labs not completed and we will check on these prior to his discharge. DS: Summary Hospital Course Hospital Course: Stable Time Spent with Patient Time attestation: Total time spent providing and/or coordinating discharge services: DS: Data Data Completed and Pending Labs on day of discharge: Labs from last 24 hours 03/03/22 03/03/22 03/03/22 04:51 04:51 04:48 WBC 18.3 H RBC 3.17 L Hgb 10.2 L Hct 30.5 L MCV 96.2 MCH 32.2 MCHC 33.4 RDW 12.0 Plt Count 205 MPV 11.2 H Immature Gran % (Auto) 0.5 Neut % (Auto) 87.2 H Lymph % (Auto) 6.1 L [place] % (Auto) 6.0 Eos % (Auto) 0.0 Baso % (Auto) 0.2 Lymph # (Auto) 1.12 [place] # (Auto) 1.1 H Eos # (Auto) 0.0 Baso # (Auto) 0.0 Abs Immat Gran (auto) 0.10 H Absolute Neuts (auto) 15.9 H Absolute Nucleated RBC 0.0 Nucleated RBC % 0.0 Sodium 132 L Potassium 4.7 Chloride 102 Carbon Dioxide 22 Anion Gap 8 BUN 29 H Creatinine 1.20 Estim Creat Clear Calc 82 Estimated GFR > 60 Glucose 258 H POC Capillary Glucose Hemoglobin A1c 6.4 H Calcium 8.0 L Blood Type Antibody Screen 03/02/22 03/02/22 03/02/22 20:53 17:39 17:37 WBC RBC Hgb Hct MCV MCH MCHC RDW Plt Count MPV Immature Gran % (Auto) Neut % (Auto) Lymph % (Auto) Knox % (Auto) Eos % (Auto) Baso % (Auto) Lymph # (Auto) Knox # (Auto) Eos # (Auto) Baso # (Auto) Abs Immat Gran (auto) Absolute Neuts (auto) Absolute Nucleated RBC Nucleated RBC % Sodium Potassium Chloride Carbon Dioxide Anion Gap BUN Creatinine Estim Creat Clear Calc Estimated GFR Glucose POC Capillary Glucose 227 H 224 H 260 H Hemoglobin A1c Calcium Blood Type Antibody Screen 03/02/22 03/02/22 10:54 10:51 WBC RBC Hgb Hct MCV MCH MCHC RDW Plt Count MPV Immature Gran % (Auto) Neut % (Auto) Lymph % (Auto) Knox % (Auto) Eos % (Auto) Baso % (Auto) Lymph # (Auto) [place] # (Auto) Eos # (Auto) Baso # (Auto) Abs Immat Gran (auto) Absolute Neuts (auto) Absolute Nucleated RBC Nucleated RBC % Sodium Potassium Chloride Carbon Dioxide Anion Gap BUN Creatinine Estim Creat Clear Calc Estimated GFR Glucose POC Capillary Glucose 119 H Hemoglobin A1c Calcium Blood Type O Positive Antibody Screen Negative Discharge Plan Discharge Patient Disposition: Home, Self-Care Discharge Instructions: [facility], [place] [id number]
[2022-03-03 08:08] LABS: Glucose Point of Care 221 mg/dl (65-105)
[2022-03-03] MEDS: INSULIN ASPART (*BKC) 100 UNITS/ML SUB-Q ×2 (08:23→11:57)
[2022-03-03 08:24] VITALS: BP 134/58; PULSE 70; RESP 20; TEMP 36.8; O2SAT 97
[2022-03-03] MEDS: CELECOXIB 200 MG CAPSULE PO (09:01)
[2022-03-03 09:02] VITALS: PULSE 84
[2022-03-03] MEDS: SENNA/DOCUSATE SODIUM TABLET 2 TAB PO (09:02)
[2022-03-03] MEDS: SPIRONOLACTONE 50 MG TABLET PO (09:02)
[2022-03-03] MEDS: GLIMEPIRIDE 2 MG TABLET 8 MG PO (09:02)
[2022-03-03] MEDS: metFORMIN HCL 500 MG TABLET PO (09:02)
[2022-03-03] MEDS: PIOGLITAZONE HCL 30 MG TABLET PO (09:02)
[2022-03-03] MEDS: APIXABAN 2.5 MG TABLET PO (09:02)
[2022-03-03] MEDS: amLODIPine BESYLATE 5 MG TABLET 10 MG PO (09:02)
[2022-03-03] MEDS: carvediloL 25 MG TABLET PO (09:02)
[2022-03-03] MEDS: polyethylene glycoL 3350 17 GM POWD.PACK PO (09:03)
--- NOTE | 2022-03-03 10:18 | WPDANESPN ---
Anes - Prog Note Post-Op Date/Time: 03/03/22 10:18 Cardiovascular status: normal Respiratory status: normal Airway patency: baseline Mental status: baseline Post-Op hydration status: normal Vital Signs: Last Vital Signs Temp 36.8 C 03/03/22 08:24 Pulse 84 03/03/22 09:02 Resp 20 03/03/22 08:24 BP 134/58 L 03/03/22 08:24 Pulse Ox 97 03/03/22 08:24 O2 Del Method Room Air 03/03/22 09:00 O2 Flow Rate 8 03/02/22 17:40 Pain Score (VAS): 08/12 I/O: Intake & Output 03/02/22 03/03/22 03/03/22 23:59 07:59 15:59 Intake Total 1500 1850 480 Output Total 1400 Balance 1500 450 480 Laboratory Tests 03/03/22 04:51 03/03/22 04:51 03/02/22 03/02/22 03/02/22 10:51 10:54 17:37 WBC RBC Hgb Hct MCV MCH MCHC RDW Plt Count MPV Immature Gran % (Auto) Neut % (Auto) Lymph % (Auto) [place] % (Auto) Eos % (Auto) Baso % (Auto) Lymph # (Auto) [place] # (Auto) Eos # (Auto) Baso # (Auto) Abs Immat Gran (auto) Absolute Neuts (auto) Absolute Nucleated RBC Nucleated RBC % Sodium Potassium Chloride Carbon Dioxide Anion Gap BUN Creatinine Estim Creat Clear Calc Estimated GFR Glucose POC Capillary Glucose 119 H 260 H Hemoglobin A1c Calcium Blood Type O Positive Antibody Screen Negative 03/02/22 03/02/22 03/03/22 17:39 20:53 04:48 WBC RBC Hgb Hct MCV MCH MCHC RDW Plt Count MPV Immature Gran % (Auto) Neut % (Auto) Lymph % (Auto) [place] % (Auto) Eos % (Auto) Baso % (Auto) Lymph # (Auto) [place] # (Auto) Eos # (Auto) Baso # (Auto) Abs Immat Gran (auto) Absolute Neuts (auto) Absolute Nucleated RBC Nucleated RBC % Sodium Potassium Chloride Carbon Dioxide Anion Gap BUN Creatinine Estim Creat Clear Calc Estimated GFR Glucose POC Capillary Glucose 224 H 227 H Hemoglobin A1c 6.4 H Calcium Blood Type Antibody Screen 03/03/22 03/03/22 03/03/22 04:51 04:51 08:06 WBC 18.3 H RBC 3.17 L Hgb 10.2 L Hct 30.5 L MCV 96.2 MCH 32.2 MCHC 33.4 RDW 12.0 Plt Count 205 MPV 11.2 H Immature Gran % (Auto) 0.5 Neut % (Auto) 87.2 H Lymph % (Auto) 6.1 L [place] % (Auto) 6.0 Eos % (Auto) 0.0 Baso % (Auto) 0.2 Lymph # (Auto) 1.12 [place] # (Auto) 1.1 H Eos # (Auto) 0.0 Baso # (Auto) 0.0 Abs Immat Gran (auto) 0.10 H Absolute Neuts (auto) 15.9 H Absolute Nucleated RBC 0.0 Nucleated RBC % 0.0 Sodium 132 L Potassium 4.7 Chloride 102 Carbon Dioxide 22 Anion Gap 8 BUN 29 H Creatinine 1.20 Estim Creat Clear Calc 82 Estimated GFR > 60 Glucose 258 H POC Capillary Glucose 221 H Hemoglobin A1c Calcium 8.0 L Blood Type Antibody Screen Post-procedural complaints: none Patient Feedback: Patient satisfied with anesthetic care.
[2022-03-03 12:00] LABS: Glucose Point of Care 304 mg/dl (65-105)
== END 2022-03-03 15:30 | disposition home or self-care (01) ==
LOC: ANHSURGERY 10:02 → ANH2MED 18:48
PROVIDERS: Nurse Practitioner; PCP Internal Medicine; Visit Provider Orthopaedic Surgery
PROC: (CPT 27447; principal; 2022-03-02 12:00)
DX: M17.11 Unilateral primary osteoarthritis, right knee (principal); E11.9 Type 2 diabetes mellitus without complications; I10 Essential (primary) hypertension; E78.5 Hyperlipidemia, unspecified; G47.33 Obstructive sleep apnea (adult) (pediatric); E66.9 Obesity, unspecified; Z68.41 Body mass index [BMI] 40.0-44.9, adult; Z99.89 Dependence on other enabling machines and devices
CPT/HCPCS: 27447; 36415; 73560; 80048; 82948; 83036; 85025; 86850; 86900; 86901; 97110; 97116; 97161; 97165; 97530; 97535; A9270; C1713; C1776; J0171; J0690; J1170; J1815; J2250; J2270; J2405; J2704; J2795; J3010; J3370; J7030; J7120

== ENCOUNTER 2022-03-07 10:53 | Outpatient (RCR) | payer MEDICARE, SELFPAY ==
--- NOTE | 2022-03-07 11:26 | PTOPEVAL1 ---
Assessment and note entered by Renaldo Delgado Evaluation Information Assessment Status Evaluation Diagnosis s/p right TKA Onset 03/02/22 Subjective Information Pt. reports that he underwent right TKA last week. He states that he has been doing exercise at home. He reports that he has not been placing any object under the knee while at rest. He reports that pain increases with activity. He reports that pain will wake him at night. He is currently using a walker for ambulation. He is not driving and has his to help around the home. He reports that his goal for therapy is to return to normal walking and decrease his pain. Reported Pain Level Pain Score 8: Self Report Assessment PT Clinical Summary Pt. is a 67 year old male who enters the clinic 5 days post right TKA. He presents with notable edema, pain, decreased ROM, decreased strength and functional decline. Continued treatment is indicted in order to improve these areas to allow the pt. to be able to return to normal IADL performance without assist. Plan of Care Interventions Electrical Stimulation,Hot Pack/Cold Pack, Intermittent Compression,Manual Therapy,Neuro Re- education,Patient/Caregiver Educati,Therapeutic Activities,Therapeutic Exercise,Self-Care/Home Management PT Services Indicated Yes Treatment Frequency and 2x/week x 12 visits Duration These treatments will address the objective and functional deficits as defined above. The patient will be advanced safely and appropriately in order for the patient to progress towards his/her prior level of function. Additional exercises will be introduced and as well as a comprehensive home exercise program upon discharge, if needed, ?to ensure carryover of functional gains achieved in the clinic. This treatment plan has been reviewed and agreement upon by the patient.
--- NOTE | 2022-04-14 20:23 | BUPTOPEVAL1 ---
Assessment and note entered by JT File, PT Evaluation Information Assessment Status Re-evaluation Diagnosis s/p right TKA Onset 03/02/22 Subjective Information patient reports he feels alright this date. he reports today is the first day he has gone completely without a cane. he reports the knee feels pretty good. he reports he has a follow up with his surgeon next week. he reports he did drive to therapy today. Reported Pain Level Pain Score 3: Self Report Assessment PT Clinical Summary mr. rollins presents to skilled PT services for his 12th skilled therapy visit today. he presents with improved R knee rom, improved strength, and improved gait mechanics. however, he continues to display lack of achievement of goals for rom, strength, gait mechanics, functional activity performance, and pain. he would do well to continue skilled PT to achieve his remaining goals and improve his quality of life/functional activity performance. Plan of Care Interventions Electrical Stimulation,Hot Pack/Cold Pack, Intermittent Compression,Manual Therapy,Neuro Re- education,Patient/Caregiver Educati,Therapeutic Activities,Therapeutic Exercise,Self-Care/Home Management PT Services Indicated Yes Treatment Frequency and continue skilled PT 2x weekly for 6 more visits Duration These treatments will address the objective and functional deficits as defined above. The patient will be advanced safely and appropriately in order for the patient to progress towards his/her prior level of function. Additional exercises will be introduced and as well as a comprehensive home exercise program upon discharge, if needed, ?to ensure carryover of functional gains achieved in the clinic. This treatment plan has been reviewed and agreement upon by the patient.
--- NOTE | 2022-04-26 17:18 | PTOPREEVAL ---
Assessment and note entered by JT File, PT Evaluation Information Assessment Status Re-evaluation Diagnosis s/p right TKA Onset 03/02/22 Subjective Information patient reports no pain in the R knee today, but stiffness in the knee towards the end of the day. he reports he is up on his leg a lot, and not elevating his leg as much as he should be or can. he reports he continues to try and walk without a limp, but does so at the end of the day. Reported Pain Level Pain Score 0: Self Report Assessment PT Clinical Summary mr. rollins continues to presents to therapy with extension lag during R SLR, lack of full rom, weakness, antalgia during gait, and marked time ambulation up and down steps. he is tolerating his home activities including walking and standing, but presents with increased limping towards the end of the day. patient was educate to try more breaks through the day, as well as elevation of the R LE. he was also educated on progression of HEP for continued strengthen and rom. he was educated that he may be too active without adequate rest and elevation causing his continued symptoms. he would do well to continue skilled PT with 1 follow up visit in a months time. Plan of Care Interventions Electrical Stimulation,Hot Pack/Cold Pack, Intermittent Compression,Manual Therapy,Neuro Re- education,Patient/Caregiver Educati,Therapeutic Activities,Therapeutic Exercise,Self-Care/Home Management PT Services Indicated Yes Treatment Frequency and 1 visit in the next month. Duration These treatments will address the objective and functional deficits as defined above. The patient will be advanced safely and appropriately in order for the patient to progress towards his/her prior level of function. Additional exercises will be introduced and as well as a comprehensive home exercise program upon discharge, if needed, ?to ensure carryover of functional gains achieved in the clinic. This treatment plan has been reviewed and agreement upon by the patient.
== END 2022-05-24 14:30 | disposition home or self-care (01) ==
LOC: CHSPT 10:53
PROVIDERS: Visit Provider Orthopaedic Surgery
DX: Z96.651 Presence of right artificial knee joint (principal); M17.11 Unilateral primary osteoarthritis, right knee
CPT/HCPCS: 97014; 97016; 97110; 97112; 97116; 97161; 97530; G0283

== ENCOUNTER 2023-07-20 09:39 | Outpatient (CLI) | payer MEDICARE, SELFPAY ==
--- NOTE | ~2023-07-20 | XR_ITS ---
XR chest 2V DATE: 07/20/2023 10:07 INDICATION: Cough for 2 weeks. Upper respiratory infection. TECHNIQUE: 2 views COMPARISON: 11/23/2021 2 view chest FINDINGS: Normal heart size. No hilar or mediastinal enlargement. No pulmonary infiltrate or consolid ation, pleural effusion or pulmonary vascular congestion or pneumothorax is detected. There is old pu lmonary granulomatous disease including calcified pulmonary granulomas on the left, calcified left hi lar and aortopulmonary window lymph nodes. Degenerative spurring of the thoracic spine. IMPRESSION: No active cardiopulmonary disease or significant change since 11/23/2021 Reviewed, dictated and finalized at location D. 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
[2023-07-20 09:59] LABS: Basophils Absolute Auto 0.05 K/mm3 (0.00-0.10); Basophils Percent Auto 0.6 % (0.0-1.0); Eosinophils Absolute Auto 0.49 K/mm3 (0.02-0.50); Eosinophils Percent Auto 5.4 % (1.0-6.0); Hematocrit 37.5 % (37.0-46.0); Hemoglobin 12.3 g/dL (12.4-15.3); Immature Granulocyte Absolute 0.03 K/mm3 (0.00-0.00); Immature Granulocyte Percent A 0.3 % (0.0-0.0); Lymphocytes Absolute Auto 1.74 K/mm3 (1.10-4.50); Lymphocytes Percent Auto 19.3 % (18.0-42.0); Mean Corpuscular HGB Conc 32.8 g/dL (32.0-36.0); Mean Corpuscular Hemoglobin 30.5 pg (27.0-31.0); Mean Corpuscular Volume 93.1 fL (78.0-102.0); Monocytes Percent Auto 6.7 % (2.0-11.0); Neutrophils Absolute Auto 6.1 K/mm3 (1.7-7.2); Neutrophils Percent Auto 67.7 % (50.0-70.0); Platelet Count Result 237 K/mm3 (150-420); Red Blood Count 4.03 M/mm3 (4.70-6.10); Red Cell Distribution Width 11.9 % (11.6-14.4)
[2023-07-20 10:42] LABS: SARS-CoV-2 RNA PCR Negative (Negative)
[2023-07-20 10:58] LABS: Influenza A QL RT-PCR Negative (Negative); Influenza B QL RT-PCR Negative (Negative); RSV RNA, RT-PCR Negative (Negative); Strep Group A RT-PCR NOT DETECTED (Negative)
== END 2023-07-20 09:40 | disposition home or self-care (01) ==
LOC: CHSLAB 09:44
PROVIDERS: PCP Internal Medicine; Visit Provider Internal Medicine
DX: J06.9 Acute upper respiratory infection, unspecified (principal); R05.9 Cough, unspecified
CPT/HCPCS: 36415; 71046; 85025; 87637; 87651

== ENCOUNTER 2024-01-08 13:39 | Outpatient (CLI) | payer MEDICARE, SELFPAY ==
--- NOTE | ~2024-01-08 | CT_ITS ---
CT abdomen pelvis wo con Ordering provider: Adamaris Tran MD History: 68 years Male with . Hematuria-GROSS X3DAYS,NO PAIN NO HISTORY OF STONES . Comparison: April 21, 2009 Technique: CT abdomen and pelvis without IV and without oral contrast. Automated exposure control and iterative reconstruction technique were employed. The dose-length product was 593.88 mGy-cm. Findings: VISUALIZED LOWER CHEST: Normal. UPPER ABDOMINAL ORGANS: Liver: Normal. Gallbladder: Status post cholecystectomy. Spleen: Normal. Stomach/duodenum: Normal. Pancreas: Normal. Adrenals: Normal. Kidneys: Tiny cyst in the left kidney midpole. PELVIC ORGANS: The bladder is underfilled.. BOWEL AND MESENTERY: Colon: No evidence of diverticulitis. Normal appendix. Small Bowel: Normal. No obstruction. Peritoneum/mesentery: No free air or free fluid. No mesenteric lymphadenopathy. RETROPERITONEUM: Mild atheromatous disease of the abdominal aorta. Retroaortic left renal vein. No r etroperitoneal lymphadenopathy. Calcific area seen posterior to the liver. MUSCULOSKELETAL: Superficial soft tissues: The superficial soft tissues are normal. Bones: Age appropriate degenerative changes of the spine. Bilateral sacroiliacs. IMPRESSION: 1. No acute abdominal process with no evidence of appendicitis, diverticulitis or intestinal obstruc tion. 2. No renal stones. Reviewed, dictated and finalized at location A. IMPRESSION: 1. No acute abdominal process with no evidence of appendicitis, diverticulitis or intestinal obstruction. 2. No renal stones.
[2024-01-08 13:50] LABS: Basophils Absolute Auto 0.05 K/mm3 (0.00-0.10); Basophils Percent Auto 0.6 % (0.0-1.0); Eosinophils Absolute Auto 0.18 K/mm3 (0.02-0.50); Hematocrit 35.4 % (37.0-46.0); Immature Granulocyte Absolute 0.04 K/mm3 (0.00-0.00); Immature Granulocyte Percent A 0.5 % (0.0-0.0); Lymphocytes Absolute Auto 1.77 K/mm3 (1.10-4.50); Lymphocytes Percent Auto 20.1 % (18.0-42.0); Mean Corpuscular HGB Conc 33.9 g/dL (32-36); Mean Corpuscular Hemoglobin 31.3 pg (27.0-31.0); Mean Corpuscular Volume 92.4 fL (78.0-102.0); Mean Platelet Volume 10.4 fl (8.7-11.0); Monocytes Absolute Auto 0.82 K/mm3 (0.10-0.90); Monocytes Percent Auto 9.3 % (2.0-11.0); Neutrophils Absolute Auto 5.96 K/mm3 (1.70-7.20); Neutrophils Percent Auto 67.5 % (50.0-70.0); Platelet Count Result 258 K/mm3 (150-420); Red Blood Count 3.83 M/mm3 (4.70-6.10); White Blood Count 8.8 K/mm3 (4.8-10.8)
[2024-01-08 14:46] LABS: Anion Gap 7 mmol/L (4-12); Blood Urea Nitrogen 23 mg/dL (9-20); Calcium 9.2 mg/dL (8.4-10.2); Carbon Dioxide 29 mmol/L (22-30); Chloride 98 mmol/L (98-107); Estimated Glomerular Filt Rate 55; Glucose 86 mg/dL (65-110); Osmolality Calculated 280 mOsm/kg (285-295); Potassium 4.7 mmol/L (3.4-5.0); Sodium 134 mmol/L (137-145)
== END 2024-01-08 13:40 | disposition home or self-care (01) ==
LOC: CHSLAB 13:41
PROVIDERS: PCP Internal Medicine; Visit Provider Internal Medicine
DX: R31.0 Gross hematuria (principal)
CPT/HCPCS: 36415; 74176; 80048; 85025